=== PATIENT | female | born 1950 | race American Indian/Alaskan Native ===

== ENCOUNTER 2017-01-11 15:50 | Emergency (ER) | payer SELFPAY ==
[2017-01-11] MEDS ORDERED: Iohexol 240 (50 ml) PO STA (17:17)
[2017-01-11] MEDS ORDERED: Iohexol 240 (50 ml) ONE (18:03)
[2017-01-11 18:36] LABS: BASO # 0.1 K/uL (0.0-0.2); BASO % 0.8 % (0.0-2.0); EOS % 0.3 % (0.0-4.0); HEMATOCRIT 37.3 % (34.0-47.0); LYMPH # 2.2 K/uL (1.0-4.3); LYMPH % 17.5 % (20.0-40.0); MEAN CELL VOLUME 77.7 fL (81.0-99.0); MEAN CORPUSCULAR HEMOGLOBIN 25.3 pg (27.0-31.0); MEAN CORPUSCULAR HGB CONC 32.5 g/dL (33.0-37.0); MEAN PLATELET VOLUME 7.5 fL (7.2-11.7); MONO # 0.9 K/uL (0.0-0.8); MONO % 7.6 % (0.0-10.0); RED CELL DISTRIBUTION WIDTH 15.5 % (11.5-14.5); WHITE BLOOD COUNT 12.5 K/uL (4.8-10.8)
[2017-01-11 18:47] LABS: RBC URINE < 1 /hpf (0-3); TRANSITIONAL EPITHIAL < 1 /hpf (0-3); URINE BACTERIA OCC (<OCC); URINE BILIRUBIN NEGATIVE (NEGATIVE); URINE COLOR Yellow (YELLOW); URINE GLUCOSE (UA) NORMAL (Normal); URINE KETONE TRACE mg/dL (NEGATIVE); URINE LEUKOCYTE ESTERASE 2+ Leu/uL (Negative); URINE PROTEIN NEGATIVE (NEGATIVE); URINE UROBILINOGEN NORMAL mg/dL (0.2-1.0); WBC URINE 25 /hpf (0-5)
[2017-01-11 18:51] LABS: CHLORIDE 105 mmol/L (98-107)
[2017-01-11 18:52] LABS: POTASSIUM 3.6 mmol/L (3.6-5.2); SODIUM 140 mmol/L (132-148)
[2017-01-11 18:54] LABS: ALB/GLOB RATIO 1.2 (1.0-2.1); ALKALINE PHOSPHATASE 145 U/L (38-126); AST/SGOT 22 U/L (14-36); BILIRUBIN,TOTAL 0.6 mg/dL (0.2-1.3); BLOOD UREA NITROGEN 5 mg/dL (7-17); CARBON DIOXIDE 24 mmol/L (22-30); GFR AFRICAN-AMERICAN > 60; TOTAL PROTEIN 7.6 g/dL (6.3-8.3)
[2017-01-11 18:55] LABS: URINE BLOOD TRACE (NEGATIVE)
[2017-01-11 18:55] LABS: ALT/SGPT 35 U/L (9-52); CALCIUM 9.5 mg/dl (8.6-10.4); GLUCOSE,RANDOM 117 mg/dL (65-105)
--- NOTE | 2017-01-11 18:56 | C.PDOC ---
History Of Present Illness <Laura Robles - Last Filed: 01/11/17 19:06> <Emmanuelle Amaya - Last Filed: 01/11/17 21:50> 66 y/o female presents to the ED for evaluation of left-sided flank and abdominal pain which began 2 days ago. Patient also reports constipation, stating she has not had a bowel movement in two days.. Patient denies fever, chills, nausea, vomiting. no cp, sob, castro or dizziness. (Laura Robles) History Per: Patient History/Exam Limitations: no limitations Onset/Duration Of Symptoms: Days (2) Current Symptoms Are (Timing): Still Present Radiation Of Pain To:: Other (left flank ) Quality Of Discomfort: "Pain" Associated Symptoms: Constipation. denies: Fever, Chills, Nausea, Vomiting Last Bowel Movement: Days Ago (2) Additional History Per: Patient <Laura Robles - Last Filed: 01/11/17 19:06> <Emmanuelle Amaya - Last Filed: 01/11/17 21:50> Time Seen by Provider: 01/11/17 17:17 Chief Complaint (Nursing): Abdominal Pain Past Medical History Reviewed: Historical Data, Nursing Documentation, Vital Signs - Medical History PMH: No Chronic Diseases Surgical History: No Surg Hx Family History: States: Unknown Family Hx - Social History Hx Alcohol Use: No Hx Substance Use: No - Immunization History Hx Tetanus Toxoid Vaccination: No Hx Influenza Vaccination: No Hx Pneumococcal Vaccination: No <Laura Robles - Last Filed: 01/11/17 19:06> Review Of Systems Constitutional: Negative for: Fever, Chills Cardiovascular: Negative for: Chest Pain Gastrointestinal: Positive for: Constipation. Negative for: Nausea, Vomiting Musculoskeletal: Positive for: Other (+left-sided flank pain ) <Laura Robles - Last Filed: 01/11/17 19:06> Physical Exam <Laura Robles - Last Filed: 01/11/17 19:06> <Emmanuelle Amaya - Last Filed: 01/11/17 21:50> - Physical Exam Additional Physical Exam Comments: Constitutional: No acute distress. Head: Normocephalic. Atraumatic. Eyes: PERRL. EOMI ENT: Moist mucous membranes. Neck: Supple. Cardiovascular: Regular rate and rhythm. No murmur. Tachycardia. Chest: No tenderness. Respiratory: Clear to auscultation bilaterally. No wheezing, rhonchi, or rales. GI: Soft. Nondistended. Normoactive bowel sounds. Tenderness to left lower quadrant. No rebound. No guarding. Back: No CVA tenderness. Musculoskeletal: No swelling of extremities. No calf tenderness. Skin: No rash. Neurologic: Alert, no gross focal deficit. (Laura Robles) ED Course And Treatment - Laboratory Results Result Diagrams: 01/11/17 18:32 01/11/17 18:32 O2 Sat by Pulse Oximetry: 97 (on RA) Pulse Ox Interpretation: Normal <Laura Robles - Last Filed: 01/11/17 19:06> - Laboratory Results Result Diagrams: 01/11/17 18:32 01/11/17 18:32 <Emmanuelle Amaya - Last Filed: 01/11/17 21:50> Medical Decision Making <Laura Robles - Last Filed: 01/11/17 19:06> <Emmanuelle Amaya - Last Filed: 01/11/17 21:50> Medical Decision Making: Impression: 66 y/o female with left flank pain Plan: * labs * CT A/P * Morphine IV * Tylenol PO * reassess and disposition Progress: labs, CT A/P ordered and reviewed. Patient received Morphine IV and Tylenol PO. (Laura Robles) Upon provider reevaluation patient is feeling better, is medically stable, and requires no further treatment in the ED at this time. Patient will be discharged home with Rx for flagyl and cipro . Counseling was provided and all questions were answered regarding diagnosis and need for follow up with the referred clinic. There is agreement to discharge plan. Return if symptoms persist or worsen. (Emmanuelle Amaya) Disposition - Disposition Disposition Time: 19:06 <Laura Robles - Last Filed: 01/11/17 19:06> Counseled Patient/Family Regarding: Studies Performed, Diagnosis, Need For Followup <Emmanuelle Amaya - Last Filed: 01/11/17 21:50> - Disposition Condition: FAIR Additional Instructions: Please return if symptoms recur. Also follow up with your PHARMACEUTICAL OFFICER doctor regarding low density in the mid portion of the uterus Prescriptions: Ciprofloxacin [Cipro] 1 tab PO BID #14 tab Metronidazole [Flagyl] 500 mg PO TID #21 tablet Instructions: Diverticulitis (DC), Gallstones (DC) Forms: [facility] (Indonesian) - Clinical Impression Clinical Impression: Abdominal pain - PA / INSTRUCTOR MODELING / Resident Statement MD/DO has reviewed & agrees with the documentation as recorded. - Scribe Statement The provider has reviewed the documentation as recorded by the Scribe (Brinda Aguilera) <Laura Robles - Last Filed: 01/11/17 19:06> <Emmanuelle Amaya - Last Filed: 01/11/17 21:50> - Scribe Statement All medical record entries made by the Scribe were at my direction and personally dictated by me. I have reviewed the chart and agree that the record accurately reflects my personal performance of the history, physical exam, medical decision making, and the department course for this patient. I have also personally directed, reviewed, and agree with the discharge instructions and disposition. (Laura Robles) Physician Patient Turnover Patient Signed Over To: Emmanuelle Amaya Handoff Comments: f/i labs and ct scan, dispo accordingly <Laura Robles - Last Filed: 01/11/17 19:06>
[2017-01-11] MEDS ORDERED: Iohexol 350mg/ml 100 ML ONE (19:40)
--- NOTE | 2017-01-11 21:01 | CT ---
EXAM: CT Abdomen and Pelvis With Intravenous Contrast EXAM DATE/TIME: Exam ordered 01/11/2017 5:18 PM CLINICAL HISTORY: 66 years old, female; Pain; Abdominal pain; Flank; Left lower quadrant (llq); Additional info: Abd pain TECHNIQUE: Axial computed tomography images of the abdomen and pelvis with intravenous contrast. All CT scans at this facility use one or more dose reduction techniques, viz.: automated exposure control; ma/kV adjustment per patient size (including targeted exams where dose is matched to indication; i.e. head); or iterative reconstruction technique. Coronal and sagittal reformatted images were created and reviewed. CONTRAST: 100 mL of OMNIPAQUE 350 administered intravenously. COMPARISON: No relevant prior studies available. FINDINGS: Lower thorax: No acute findings. ABDOMEN: Liver: 1 cm low density lesions are noted within the liver adjacent to the gallbladder. The there is a focal segment of the descending colon which is thickened and demonstrates pericolonic inflammatory change. Gallbladder and bile ducts: Multiple gallstones are noted within the gallbladder. This includes a 3.3 cm rim calcified gallstone. No ductal dilation. Pancreas: Unremarkable. No mass. No ductal dilation. Spleen: Unremarkable. No splenomegaly. Adrenals: Unremarkable. No mass. Kidneys and ureters: Unremarkable. No solid mass. No hydronephrosis. Stomach and bowel: There are sigmoid colonic diverticulosis. There multiple colonic diverticula. There is no perforation. There is no abscess.No obstruction. No mucosal thickening. Appendix: No findings to suggest acute appendicitis. PELVIS: Bladder: Unremarkable. No mass. Reproductive: There are calcified uterine fibroids. A central area of low density is noted within the midportion of the uterus in the region of the endometrial canal. The calcification is noted in the region of the right adnexa. ABDOMEN and PELVIS: Intraperitoneal space: Unremarkable. No free air. No significant fluid collection. Bones/joints: Degenerative changes are noted of the facet joints at the lumbosacral junction. No acute fracture. No dislocation. Soft tissues: There is a small umbilical hernia containing fat. 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 A A high grade stenosis also noted of the left external iliac artery approximately a centimeter beyond the aortic bifurcation. No abdominal aortic aneurysm. Lymph nodes: Unremarkable. No enlarged lymph nodes. IMPRESSION: 1. Diverticulitis noted in the region of the descending colon. No abscess. No perforation. 2. Gallstones. 3. Central area of low density within the midportion of the uterus in the area of the endometrial canal. Focal endometrial neoplasm is among the diagnostic considerations. This could also be due to a cystic fibroid. Evaluation with pelvic ultrasound might be considered. 4. Calcified uterine fibroids. 5. 3 lesions noted within the liver parenchyma at the level of the hepato-cholecystic space. They appear to be sim is ple hepatic cysts. 6. 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 A high grade stenosis also noted of the left external iliac artery
[2017-01-11] MEDS ORDERED: Piperacillin/Tazobact 3.375 gm 100 ML IVPB STA (21:06)
[2017-01-11] MEDS ORDERED: metroNIDAZOLE IV 500 mg/100 ml 500 MG/100 ML BAG IVPB STA (21:07)
[2017-01-11] MEDS ORDERED: Piperacillin/Tazobact 3.375 gm 100 ML IVPB ONE (21:22)
[2017-01-11] MEDS ORDERED: metroNIDAZOLE IV 500 mg/100 ml 500 MG/100 ML BAG ONE (21:22)
[2017-01-11 22:26] VITALS: BP 176/86; PULSE 82; RESP 20; TEMP 98.2; O2SAT 98
--- NOTE | 2017-01-14 10:21 | CARD ---
APPROVED REPORT EKG Measurement Heart [id number] <Conclusion> Sinus tachycardia Right axis deviation ST & T wave abnormality, consider inferior ischemia Abnormal ECG
== END 2017-01-11 22:25 | disposition home or self-care (01) ==
LOC: C.ER 15:50
DX: R10.32 Left lower quadrant pain (principal)
CPT/HCPCS: 74177; 80053; 81001; 83690; 85025; 93005; 96365; 96375; 99284; J2543; Q9966; Q9967

== ENCOUNTER 2018-07-17 19:25 | Emergency (ER) | payer SELFPAY ==
[2018-07-17 19:58] VITALS: RESP 22; BMI 28.7
--- NOTE | 2018-07-17 20:11 | C.PDOC ---
History Of Present Illness 67 year old female states that at 1600 she had an episode of blurry vision and felt like her eyes were moving spontaneously which lasted 1 minute. Patient had lightheadedness with it, she took aspirin at the time then came to the ER. She admits to Hx of HTN, has been told for the last few years by multiple doctors but does not take any HTN medication for it. Denies headache, facial droop, slurred speech, extremity weakness, changes in sensation, chest pain, SOB, or palpitations. Time Seen by Provider: 07/17/18 19:32 Chief Complaint (Nursing): Eye Problem History Per: Patient History/Exam Limitations: no limitations Onset/Duration Of Symptoms: Hrs Current Symptoms Are (Timing): Gone Injury To Eye?: No Wears Contact Lens?: No Associated Symptoms: Decreased Vision, Other (Eyes moving spontaneously) Recent travel outside of the [place]: No Past Medical History Reviewed: Historical Data, Nursing Documentation, Vital Signs Vital Signs: Last Vital Signs Temp 98.7 F 07/17/18 19:45 Pulse 99 H 07/17/18 19:45 Resp 22 07/17/18 19:45 BP 242/120 H 07/17/18 19:45 Pulse Ox 99 07/17/18 19:45 Family History: States: Unknown Family Hx - Social History Hx Alcohol Use: No Hx Substance Use: No - Immunization History Hx Tetanus Toxoid Vaccination: No Hx Influenza Vaccination: No Hx Pneumococcal Vaccination: No Review Of Systems Except As Marked, All Systems Reviewed And Found Negative. Eyes: Positive for: Vision Change Cardiovascular: Positive for: Light Headedness Physical Exam - Physical Exam Appears: Non-toxic Skin: Normal Color, Warm Head: Atraumatic, Normacephalic Eye(s): bilateral: Normal Inspection, PERRL, EOMI Oral Mucosa: Moist Neck: Normal, Supple Chest: Symmetrical, No Tenderness Cardiovascular: Rhythm Regular, Murmur (3/6 holosystolic) Respiratory: Normal Breath Sounds, No Rales, No Rhonchi, No Wheezing Gastrointestinal/Abdominal: Soft, No Tenderness Back: No CVA Tenderness Extremity: Normal ROM (x4), Other (Trace pitting lower extremity edema) Neurological/Psych: Oriented x3, Normal Speech, Normal Cognition, Normal Cranial Nerves, Normal Motor, Normal Sensation Gait: Steady ED Course And Treatment - Laboratory Results Result Diagrams: 07/17/18 20:49 07/17/18 21:30 ECG: Interpreted By Me, Viewed By Me ECG Rhythm: Sinus Rhythm ECG Interpretation: Normal Interpretation Of ECG: Normal axis, T wave inversions at leads 1 avl v5 and v6, no ST changes. Rate From EC O2 Sat by Pulse Oximetry: 99 (Room air) Pulse Ox Interpretation: Normal Progress Note: CT head, EKG, and blood work ordered. Plan is to admit for HTN urgency Disposition Counseled Patient/Family Regarding: Studies Performed, Diagnosis, Need For Followup, Rx Given - Disposition Referrals: [facility] [Outside] Disposition: HOME/ ROUTINE Disposition Time: 22:45 Condition: STABLE Additional Instructions: FOLLOW UP IN THE MEDICAL CLINIC OR WITH DR DOSHI IN 1-2 DAYS USE MEDICATION DAILY NO SALT USE IN YOUR FOOD RETURN TO ER IF YOU HAVE ANY CONCERNING SYMPTOMS Prescriptions: hydroCHLOROthiazide [Hydrodiuril] 25 mg PO DAILY #30 tab Instructions: High Blood Pressure (DC) Forms: [employer] (Swedish) Print Language: ITALIAN - Clinical Impression Clinical Impression: Hypertension - Scribe Statement The provider has reviewed the documentation as recorded by the Scribe Justice Kerr All medical record entries made by the Scribe were at my direction and personally dictated by me. I have reviewed the chart and agree that the record accurately reflects my personal performance of the history, physical exam, medical decision making, and the department course for this patient. I have also personally directed, reviewed, and agree with the discharge instructions and disposition.
[2018-07-17 20:42] LABS: HEMOGLOBIN 13.6 g/dL (11.0-16.0); MEAN CORPUSCULAR HEMOGLOBIN 25.7 pg (27.0-31.0); RBC 5.3 Mil/uL (3.80-5.20); WHITE BLOOD COUNT 6.5 K/uL (4.8-10.8)
[2018-07-17 20:43] LABS: BASO # 0.1 K/uL (0.0-0.2); BASO % 1.1 % (0.0-2.0); EOS # 0.1 K/uL (0.0-0.7); LYMPH # 2.5 K/uL (1.0-4.3); LYMPH % 38.4 % (20.0-40.0); MEAN CORPUSCULAR HGB CONC 32.1 g/dL (33.0-37.0); MEAN PLATELET VOLUME 8.4 fL (7.2-11.7); MONO # 0.6 K/uL (0.0-0.8); MONO % 9.2 % (0.0-10.0); NEUT # 3.3 K/uL (1.8-7.0); NEUT % 50.3 % (50.0-75.0); NRBC % 0.1 % (0.0-2.0); RED CELL DISTRIBUTION WIDTH 15.7 % (11.5-14.5)
[2018-07-17 21:34] LABS: ALB/GLOB RATIO 1.3 (1.0-2.1); ALBUMIN 4.6 g/dL (3.5-5.0); BLOOD UREA NITROGEN 11 mg/dL (7-17); CALCIUM 10.9 mg/dl (8.6-10.4); GFR NON-AFRICAN AMERICAN > 60
[2018-07-17 21:35] LABS: ALT/SGPT 10 U/L (9-52); AST/SGOT 22 U/L (14-36); CK-MB 0.58 ng/mL (0.0-3.38)
[2018-07-17 21:46] LABS: INR 1.1; PROTHROMBIN TIME 11.8 SECONDS (9.7-12.2)
[2018-07-17 23:01] VITALS: BP 189/87; PULSE 83; TEMP 98.9; O2SAT 97
--- NOTE | 2018-07-18 08:33 | CT ---
Date of service: 07/17/2018 PROCEDURE: CT HEAD WITHOUT CONTRAST. HISTORY: VISUAL CHANGES, HEADACHE, HYPERTENSION COMPARISON: Not available TECHNIQUE: Axial computed tomography images were obtained through the head/brain without intravenous contrast. Radiation dose: Total exam DLP = 1021.38 mGy-cm. This CT exam was performed using one or more of the following dose reduction techniques: Automated exposure control, adjustment of the mA and/or kV according to patient size, and/or use of iterative reconstruction technique. FINDINGS: HEMORRHAGE: No intracranial hemorrhage. BRAIN: No mass effect or edema. No atrophy or chronic microvascular ischemic changes. VENTRICLES: Unremarkable. No hydrocephalus. CALVARIUM: Unremarkable. PARANASAL SINUSES: Unremarkable as visualized. No significant inflammatory changes. MASTOID AIR CELLS: Unremarkable as visualized. No inflammatory changes. OTHER FINDINGS: None. IMPRESSION: Normal CT of the Head. No intracranial mass, hemorrhage or evidence of acute infarct. The preliminary findings for this examination were reported by [facility] at 9:40 p.m. on 07/17/2018. There is concurrence of this report with the preliminary findings.
== END 2018-07-17 23:00 | disposition home or self-care (01) ==
LOC: C.ER 19:25
DX: I10 Essential (primary) hypertension (principal)